=== PATIENT | male | born 1980 | race African-American/Black ===

== ENCOUNTER 2016-05-30 19:22 | Emergency (ER) | payer MEDICAID, OTHER ==
[~2016-05-30] VITALS: Ht 182.9 cm; Wt 79.5 kg
[~2016-05-30 19:22] MED LIST: BACT800T5 PO
[2016-05-30 19:30] VITALS: BP 122/76; PULSE 75; RESP 12; TEMP 97.6; O2SAT 93
[2016-05-30 20:33] VITALS: BP 120/84; PULSE 74; RESP 16; TEMP 98.5; O2SAT 99
[2016-05-30] MEDS ORDERED: IBUP800T23 PO (21:28)
--- NOTE | 2016-05-30 21:29 | PD ---
HPI Chief Complaint: Bite or Sting Time Seen by Provider: 20:30 Travel History International Travel<30 days: No Contact w/Intl Traveler<30days: No Traveled to known affect area: No History of Present Illness HPI Patient is a 36-year-old male presenting to emergency for evaluation of a lump to the back of his head. Patient states he thinks he was bit by a spider. He states the area is sore. He denies any fever, chills, nausea, vomiting. He states that the pressure from the bump his causing him to have a headache. He denies any other complaints at this time. He hasn't taken anything for the pain. He reports a history of a in abscess to his buttock that he drained himself several years ago. [facility] Past Medical History Asthma: Yes Diminished Hearing: No Tetanus Vaccination: Unknown Influenza Vaccination: No ?: Not Social History Alcohol Use: No Tobacco Use: No Substance Use: No Allergies-Medications (Allergen,Severity, Reaction): Coded Allergies: Penicillin (Verified Allergy, Unknown, CHILDHOOD, 09/04/14) Reported Meds & Prescriptions Reported Meds & Active Scripts Active Bactrim DS (Sulfamethoxazole-Trimethoprim DS) 1 Tab Tab 1 Tab PO BID 10 Days Review of Systems Except as stated in HPI: all other systems reviewed are Neg Musculoskeletal: Positive: Pain Skin: Positive Lumps Physical Exam Narrative GENERAL: Well-nourished, well-developed patient. SKIN: Focused skin assessment warm/dry. 2.5 cm area of fluctuance to the posterior scalp. No erythema noted, mildly tender to palpation. HEAD: Normocephalic. EYES: No scleral icterus. No injection or drainage. NECK: Supple, trachea midline. No JVD or lymphadenopathy. CARDIOVASCULAR: Regular rate and rhythm without murmurs, gallops, or rubs. RESPIRATORY: Breath sounds equal bilaterally. No accessory muscle use. GASTROINTESTINAL: Abdomen soft, non-tender, nondistended. MUSCULOSKELETAL: No cyanosis, or edema. BACK: Nontender without obvious deformity. No CVA tenderness. Data Data Last Documented VS Vital Signs Date Time Temp Pulse Resp B/P Pulse Ox O2 Delivery O2 Flow Rate FiO2 05/30/16 20:33 98.5 74 16 120/84 99 MDM Medical Decision Making Medical Screen Exam Complete: Yes Emergency Medical Condition: Yes Interpretation(s) Vital Signs Date Time Temp Pulse Resp B/P Pulse Ox O2 Delivery O2 Flow Rate FiO2 05/30/16 20:33 98.5 74 16 120/84 99 05/30/16 19:30 97.6 75 12 122/76 93 Differential Diagnosis Abscess versus contusion versus hematoma versus cyst versus other Narrative Course Patient is a 36-year-old male presenting to the [facility] for evaluation of a lump to the back of his head. Patient stated it been there for 3-4 days however it appears more consistent with a sebaceous cyst that has been there for some time. There is no sign of infection present. Patient states that he recently cut off his dreadlocks, likely that the cyst with a noticeable with his hair longer. Please see procedure report I&D. Patient tolerated procedure well, 2 dissolvable stitches were placed to close opening. Patient was advised that these will dissolve on their own. He was advised that he could wash his hair tonight but avoid washing for several days unless absolutely necessary. Patient verbalized understanding of discharge instructions. Patient is stable for discharge. Procedures Procedure Narrative After the risks and benefits were discussed the following procedure was performed: INCISION AND DRAINAGE OF ABSCESS: The area was prepped and was sterilely draped. A subcutaneous wheal of 2 % Xylocaine with a total number 2 mL was used to anesthetize the area. The area was properly anesthetized. A number 11 scalpel was used to make a 1 -cm incision across the area of the abscess. Loculations were broken up with Q-tips and tweezers. Large amount of waxy thick white exudate expressed from cyst. The sac was removed. Patient tolerated procedure well. Diagnosis Primary Impression: Sebaceous cyst Referrals: Primary Care Physician Patient Instructions: Care For Your Absorbable Stitches (ED), Cyst (ED), General Instructions Additional Instructions: Keep sutures clean and dry Follow-up with your primary doctor Return to emergency department for any new or worsening symptoms Med/Other Pt SpecificInfo: Prescription(s) given Scripts Ibuprofen 800 Mg [id number] Mg PO Q6HR PRN (PAIN) #40 TAB Ref 0 Prov:Baylee Stone 05/30/16 Disposition: 01 DISCHARGE HOME Condition: Stable Baylee Stone May 30, 2016 21:29
== END 2016-05-30 21:52 | disposition home or self-care (01) ==
LOC: PHED 19:22 → PHEFT 21:52
DX: L72.3 Sebaceous cyst (principal); R51 Headache; J45.909 Unspecified asthma, uncomplicated
CPT/HCPCS: 10060

== ENCOUNTER 2016-10-08 18:49 | Emergency (ER) | payer MEDICAID ==
[~2016-10-08] VITALS: Ht 182.9 cm; Wt 83.9 kg
[~2016-10-08 18:49] MED LIST changes: +IBUP800T23 PO
[2016-10-08 18:55] VITALS: BP 136/78; PULSE 83; RESP 18; TEMP 98.1; O2SAT 97
--- NOTE | 2016-10-08 19:15 | PD ---
HPI Chief Complaint: Musculoskeletal Complaint Time Seen by Provider: 19:07 Travel History International Travel<30 days: No Contact w/Intl Traveler<30days: No Traveled to known affect area: No History of Present Illness HPI 36-year-old male presents to the emergency room for evaluation of lateral neck pain after his 1-year-old son jumped on him 2 hours prior to arrival. Patient states he was working on his computer when is 1-year-old screened and jumped with his full body weight into the patient's left lateral neck. States that he has had worsening pain. Pain is worsened with any range of motion of the neck or back. He has not taken anything for symptoms. Denies paresthesias. No chronic medical conditions or daily medications. PFSH Past Medical History Asthma: Yes Diminished Hearing: No Social History Alcohol Use: No Tobacco Use: No Substance Use: No Allergies-Medications (Allergen,Severity, Reaction): Coded Allergies: hydromorphone (Verified Allergy, Unknown, 10/08/16) penicillin G (Unverified Allergy, Unknown, CHILDHOOD, 10/08/16) Reported Meds & Prescriptions Reported Meds & Active Scripts Active Robaxin (Methocarbamol) 750 Mg Tab 750 Mg PO Q8HR Ibuprofen 600 Mg Tab 600 Mg PO Q8H PRN 7 Days Review of Systems Except as stated in HPI: all other systems reviewed are Neg Physical Exam Narrative GENERAL: Well-nourished, well-developed male in no acute distress. Afebrile. Ambulatory. SKIN: Focused skin assessment warm/dry. No erythema or ecchymosis noted. HEAD: Normocephalic. EYES: No scleral icterus. No injection or drainage. NECK: Suppler. No meningeal signs. Trachea midline. No JVD or lymphadenopathy. No midline tenderness. Limited range of motion of the neck secondary to pain. Tenderness to palpation of the left sternocleidomastoid muscle. CARDIOVASCULAR: Regular rate and rhythm without murmurs, gallops, or rubs. RESPIRATORY: Breath sounds equal bilaterally. No accessory muscle use. PSYCHIATRIC: No delusional thought processes. No hallucinations. Data Data Last Documented VS Vital Signs Date Time Temp Pulse Resp B/P (MAP) Pulse Ox O2 Delivery O2 Flow Rate FiO2 10/08/16 18:55 98.1 83 18 136/78 (97) 97 MDM Medical Decision Making Medical Screen Exam Complete: Yes Emergency Medical Condition: Yes Medical Record Reviewed: Yes Differential Diagnosis Cervical strain, contusion, fracture, muscle spasm, strain Narrative Course 36-year-old male presents to the emergency room for evaluation of left-sided neck pain after injury just 2 hours prior to arrival. Patient states was 1-year -old child jumped on his neck while he was working on his computer. He took a shower without relief in symptoms. He has not taken anything for pain. Patient denies paresthesias. Pain is worse with range of motion. Localized to the lateral neck without radiation. Physical exam reveals no midline tenderness of the neck. Patient is well-appearing. No increased work of breathing. No obvious edema, ecchymosis, or erythema. There is tenderness to palpation of the sternocleidomastoid muscle. This is likely strain and contusion. Patient will be treated for muscle spasm with Robaxin and ibuprofen. He is told to follow up with a primary care physician if symptoms persist more than a week or return for worsening symptoms. He understands and agrees to plan. Diagnosis Primary Impression: Cervical muscle strain Qualified Codes: S16.1XXA - Strain of muscle, fascia and tendon at neck level , initial encounter Referrals: Primary Care Physician Additional Instructions: Rest and drink plenty of fluids. Take Robaxin as directed, as needed for pain. Take ibuprofen with food as directed, as needed for pain. Apply ice to the affected area for 20 minutes at a time, as needed for pain and swelling. Follow-up with a primary care physician. Return to the emergency room for worsening symptoms. Med/Other Pt SpecificInfo: Prescription(s) given, No Change to Meds Scripts Methocarbamol (Robaxin) 750 Mg Tab 750 MG PO Q8HR for Muscle Spasm, #15 TAB 0 Refills Prov: Ronan Blunt MD 10/08/16 Ibuprofen (Ibuprofen) 600 Mg Tab 600 MG PO Q8H Y for PAIN for 7 Days, TAB 0 Refills Prov: Ronan Blunt MD 10/08/16 Disposition: 01 DISCHARGE HOME Condition: Stable Amber Red Oct 08, 2016 19:15
[2016-10-08] MEDS ORDERED: ROBA750T PO (19:16)
[2016-10-08] MEDS ORDERED: IBUP-232 PO (19:16)
== END 2016-10-08 19:27 | disposition home or self-care (01) ==
LOC: PHEFT 18:49
DX: S16.1XXA Strain of muscle, fascia and tendon at neck level, initial encounter (principal); X58.XXXA Exposure to other specified factors, initial encounter
CPT/HCPCS: 99283